=== PATIENT | female | born 1960 | race Hispanic/Latino ===

== ENCOUNTER 2017-08-17 15:58 | Emergency (ER) | payer SELFPAY ==
[2017-08-17] MEDS ORDERED: Ketorolac Tromethamine 30 MG/ML VIAL ONE (18:57)
== END 2017-08-17 19:20 | disposition home or self-care (01) ==
LOC: ERS 15:58
DX: J11.1 Influenza due to unidentified influenza virus with other respiratory manifestations (principal); E11.9 Type 2 diabetes mellitus without complications; F32.9 Major depressive disorder, single episode, unspecified; F41.9 Anxiety disorder, unspecified; Z79.4 Long term (current) use of insulin; Z79.899 Other long term (current) drug therapy
CPT/HCPCS: 96372; J1885

== ENCOUNTER 2018-03-23 12:00 | Emergency (ER) | payer OTHER, SELFPAY ==
[2018-03-23 12:42] LABS: #Basophils 0.1 thou/uL (0.0-0.2); #Lymphocytes 1.1 thou/uL (1.20-3.40); #Monocytes 0.9 thou/uL (0.11-0.59); #Neutrophils 5.5 thou/uL (1.40-6.50); %Basophils 0.7 % (0.0-1.0); %Eosinophils 0.3 % (0.0-10.0); %Lymphocytes 14.8 % (21.0-51.0); %Neutrophils 72.3 % (42.0-75.0); Hemoglobin 15.3 g/dL (12.0-16.0); Mean Corpuscular Hemoglobin 31.8 pg (27.0-31.0); Mean Corpuscular Volume 93.6 fL (78.0-98.0); Mean Platelet Volume 8.1 fL (7.4-10.4); Platelet Count 160 thou/uL (130-400); RBC Distribution Width 12.7 % (11.5-14.5); Red Blood Cell (RBC) Count 4.81 mill/uL (4.20-5.40); White Blood Cell (WBC) Count 7.6 thou/uL (4.8-10.8)
[2018-03-23] MEDS ORDERED: Ondansetron HCl/PF 4 MG/2 ML Vial ONE (12:59)
[2018-03-23 13:11] LABS: ALT (SGPT) 65 U/L (8-55); AST (SGOT) 89 U/L (5-34); Albumin 3.7 g/dL (3.5-5.0); Alkaline Phosphatase 108 U/L (40-150); Anion Gap 18 mmol/L (10-20); BUN (Urea Nitrogen) 13 mg/dL (9.8-20.1); Bilirubin, Total 0.4 mg/dL (0.2-1.2); Calc. Creatinine Clearance 0 mL/min (70-130); Calcium 8.3 mg/dL (7.8-10.44); Carbon Dioxide 16 mmol/L (22-29); Chloride 101 mmol/L (98-107); Estimated GFR-MDRD Greater than 90; Globulin 3.1 g/dL (2.4-3.5); Glucose 125 mg/dL (70-105); Potassium 3.6 mmol/L (3.5-5.1); Protein, Total 6.8 g/dL (6.0-8.3); Sodium 131 mmol/L (136-145)
--- NOTE | 2018-03-23 13:30 | RAD ---
CHEST 1 VIEW: Date: 03/23/18 HISTORY: Cough. COMPARISON: 09/30/12. FINDINGS: Normal cardiac silhouette. Pulmonary vessels and hilum are normal. Costophrenic angles are clear. Chr onic changes lung parenchyma, without consolidation or mass. No pneumothorax or osseous abnormalities . IMPRESSION: No acute cardiopulmonary process. POS: ERVIN
[2018-03-23 15:27] LABS: Bilirubin Negative (Negative); Blood, Urine Negative (Negative); Clarity CLEAR (Clear); Glucose, Urine (Dipstick) 500 mg/dL (Negative); Leukocyte Negative (Negative); Nitrite Negative (Negative); Protein, Urine (Dipstick) Negative (Neg-Trace); Specific Gravity, Urine 1.025 (1.002-1.036); Urobilinogen 0.2 mg/dL (0.2-1.0)
== END 2018-03-23 15:50 | disposition home or self-care (01) ==
LOC: ERS 12:00
DX: R11.2 Nausea with vomiting, unspecified (principal); E11.9 Type 2 diabetes mellitus without complications; Z79.4 Long term (current) use of insulin; F41.9 Anxiety disorder, unspecified; F32.9 Major depressive disorder, single episode, unspecified; Z79.899 Other long term (current) drug therapy
CPT/HCPCS: 36415; 36416; 71045; 80053; 81003; 82010; 83690; 85025; 93005; 96361; 96374; J2405

== ENCOUNTER 2018-03-25 14:41 | Outpatient (CLI) | payer OTHER | END 2018-03-25 14:42 | disposition home or self-care (01) | LOC: BICRAD 14:41 | PROVIDERS: ATTEND Family Medicine | DX: R05 Cough (principal) | CPT/HCPCS: 71046 ==

== ENCOUNTER 2018-04-24 14:48 | Emergency (ER) | payer MEDICARE, OTHER ==
[2018-04-24 15:29] LABS: #Basophils 0.1 thou/uL (0.0-0.2); #Eosinphils 0.2 thou/uL (0.0-0.7); #Lymphocytes 1.7 thou/uL (1.20-3.40); #Monocytes 0.5 thou/uL (0.11-0.59); #Neutrophils 3.7 thou/uL (1.40-6.50); %Basophils 1.1 % (0.0-1.0); %Eosinophils 3.2 % (0.0-10.0); %Lymphocytes 27.7 % (21.0-51.0); %Monocytes 8.5 % (0.0-10.0); %Neutrophils 59.5 % (42.0-75.0); Hemoglobin 13.5 g/dL (12.0-16.0); Mean Corpuscular HGB CONC 34.9 g/dL (32.0-36.0); Mean Corpuscular Hemoglobin 32.8 pg (27.0-31.0); Mean Corpuscular Volume 93.9 fL (78.0-98.0); Mean Platelet Volume 8.3 fL (7.4-10.4); Platelet Count 154 thou/uL (130-400); RBC Distribution Width 12.6 % (11.5-14.5); Red Blood Cell (RBC) Count 4.13 mill/uL (4.20-5.40); White Blood Cell (WBC) Count 6.2 thou/uL (4.8-10.8)
[2018-04-24 15:34] LABS: ALT (SGPT) 61 U/L (8-55); AST (SGOT) 78 U/L (5-34); Albumin 3.6 g/dL (3.5-5.0); Alkaline Phosphatase 104 U/L (40-150); Anion Gap 12 mmol/L (10-20); BUN (Urea Nitrogen) 8 mg/dL (9.8-20.1); Bilirubin, Total 0.2 mg/dL (0.2-1.2); Calc. Creatinine Clearance 0 mL/min (70-130); Calcium 8.5 mg/dL (7.8-10.44); Carbon Dioxide 26 mmol/L (22-29); Chloride 100 mmol/L (98-107); Estimated GFR-MDRD 80; Globulin 2.8 g/dL (2.4-3.5); Glucose 356 mg/dL (70-105); Potassium 3.6 mmol/L (3.5-5.1); Protein, Total 6.4 g/dL (6.0-8.3); Sodium 134 mmol/L (136-145)
[2018-04-24] MEDS ORDERED: Ondansetron HCl/PF 4 MG/2 ML Vial ONE (15:36)
[2018-04-24 15:39] LABS: CKMB 0.6 ng/mL (0-6.6); Troponin I Less than 0.010 ng/mL (< 0.028)
[2018-04-24 16:07] LABS: Bilirubin Negative (Negative); Blood, Urine Negative (Negative); Clarity CLEAR (Clear); Glucose, Urine (Dipstick) >=1000 mg/dL (Negative); Leukocyte Negative (Negative); Nitrite Negative (Negative); Protein, Urine (Dipstick) Negative (Neg-Trace); Specific Gravity, Urine 1.034 (1.002-1.036); Urobilinogen 0.2 mg/dL (0.2-1.0); pH, Urine 6.5 (5.0-9.0)
== END 2018-04-24 17:36 | disposition home or self-care (01) ==
LOC: ERS 14:48
DX: E11.65 Type 2 diabetes mellitus with hyperglycemia (principal); F25.9 Schizoaffective disorder, unspecified; F41.9 Anxiety disorder, unspecified; F32.9 Major depressive disorder, single episode, unspecified; Z79.4 Long term (current) use of insulin; Z79.899 Other long term (current) drug therapy
CPT/HCPCS: 80053; 81003; 82553; 84443; 84484; 85025; 93005; 96361; 96374; J2405

== ENCOUNTER 2018-07-06 09:23 | Emergency (ER) | payer MEDICARE ==
[2018-07-06 10:06] LABS: #Eosinphils 0.2 thou/uL (0.0-0.7); #Lymphocytes 1.4 thou/uL (1.20-3.40); #Monocytes 0.7 thou/uL (0.11-0.59); #Neutrophils 6.9 thou/uL (1.40-6.50); %Basophils 0.1 % (0.0-1.0); %Eosinophils 1.7 % (0.0-10.0); %Monocytes 7.1 % (0.0-10.0); Hemoglobin 13.9 g/dL (12.0-16.0); Mean Corpuscular HGB CONC 32.3 g/dL (32.0-36.0); Mean Corpuscular Hemoglobin 31.3 pg (27.0-31.0); Mean Corpuscular Volume 96.8 fL (78.0-98.0); Platelet Count 194 thou/uL (130-400); RBC Distribution Width 12.7 % (11.5-14.5); Red Blood Cell (RBC) Count 4.45 mill/uL (4.20-5.40); White Blood Cell (WBC) Count 9.1 thou/uL (4.8-10.8)
[2018-07-06] MEDS ORDERED: Ondansetron PF 4 MG/2 ML Vial ONE (10:16)
[2018-07-06 10:37] LABS: ALT (SGPT) 51 U/L (8-55); AST (SGOT) 52 U/L (5-34); Albumin 3.7 g/dL (3.5-5.0); Alkaline Phosphatase 98 U/L (40-150); Anion Gap 11 mmol/L (10-20); BUN (Urea Nitrogen) 9 mg/dL (9.8-20.1); Bilirubin, Total 0.5 mg/dL (0.2-1.2); Calc. Creatinine Clearance 0 mL/min (70-130); Carbon Dioxide 30 mmol/L (22-29); Chloride 104 mmol/L (98-107); Estimated GFR-MDRD Greater than 90; Globulin 2.8 g/dL (2.4-3.5); Glucose 135 mg/dL (70-105); Lipase 9 U/L (8-78); Potassium 3.5 mmol/L (3.5-5.1); Protein, Total 6.5 g/dL (6.0-8.3); Sodium 141 mmol/L (136-145)
[2018-07-06 10:38] LABS: Bilirubin Negative (Negative); Blood, Urine Negative (Negative); Clarity CLEAR (Clear); Glucose, Urine (Dipstick) >=1000 mg/dL (Negative); Leukocyte Negative (Negative); Nitrite Negative (Negative); Protein, Urine (Dipstick) Negative (Neg-Trace); Specific Gravity, Urine 1.033 (1.002-1.036); Urobilinogen 0.2 mg/dL (0.2-1.0)
== END 2018-07-06 11:04 | disposition home or self-care (01) ==
LOC: ERS 09:23
DX: R11.2 Nausea with vomiting, unspecified (principal); E11.9 Type 2 diabetes mellitus without complications; F25.9 Schizoaffective disorder, unspecified; F32.9 Major depressive disorder, single episode, unspecified; F41.9 Anxiety disorder, unspecified; Z79.4 Long term (current) use of insulin; Z79.899 Other long term (current) drug therapy
CPT/HCPCS: 36415; 36416; 80053; 81003; 83690; 85025; 96361; 96374; J2405

== ENCOUNTER 2019-09-19 14:04 | Outpatient (CLI) | payer MEDICARE ==
--- NOTE | 2019-09-19 14:57 | MMO ---
Bilateral MAMMO Bilat Screen [facility]. CLINICAL HISTORY: Patient is 59 years old and is seen for screening. The patient has no family history of breast cancer. The patient has no personal history of cancer. The patient has a history of left Excisional Biopsy in 1999 - benign. VIEWS: The views performed were: bilateral craniocaudal with tomosynthesis and bilateral mediolateral oblique with tomosynthesis. FILMS COMPARED: The present examination has been compared to prior imaging studies performed at on 01/31/2013 and 06/10/2016. This study has been interpreted with the assistance of computer-aided detection. MAMMOGRAM FINDINGS: There are scattered fibroglandular densities. There are no suspicious masses, suspicious calcifications, or new areas of architectural distortion. IMPRESSION: THERE IS NO MAMMOGRAPHIC EVIDENCE OF MALIGNANCY. A ROUTINE FOLLOW-UP MAMMOGRAM IN 1 YEAR IS RECOMMENDED. THE RESULTS OF THIS EXAM WERE SENT TO THE PATIENT. ACR BI-RADS Category 1 - Negative MAMMOGRAPHY NOTE: 1. A negative mammogram report should not delay a biopsy if a dominant of clinically suspicious mass is present. 2. Approximately 10% to 15% of breast cancers are not detected by mammography. 3. Adenosis and dense breasts may obscure an underlying neoplasm. Reported by: SIDRA MITCHELL MD Electonically Signed: [id number]
== END 2019-09-19 14:05 | disposition home or self-care (01) ==
LOC: BICMAMMO 14:04
PROVIDERS: ATTEND Family Medicine
DX: Z12.31 Encounter for screening mammogram for malignant neoplasm of breast (principal); Z91.89 Other specified personal risk factors, not elsewhere classified
CPT/HCPCS: 77063; 77067

== ENCOUNTER 2020-01-29 14:26 | Observation (INO) | payer MEDICARE, OTHER ==
[2020-01-29 15:51] LABS: #Eosinphils 0.2 thou/uL (0.0-0.7); #Lymphocytes 1.3 thou/uL (1.20-3.40); #Monocytes 0.5 thou/uL (0.11-0.59); #Neutrophils 3.8 thou/uL (1.40-6.50); %Basophils 0.7 % (0.0-1.0); %Lymphocytes 21.8 % (21.0-51.0); %Monocytes 8.4 % (0.0-10.0); %Neutrophils 66.1 % (42.0-75.0); Hemoglobin 12.8 g/dL (12.0-16.0); Mean Corpuscular HGB CONC 33.7 g/dL (32.0-36.0); Mean Corpuscular Hemoglobin 31.6 pg (27.0-31.0); Mean Corpuscular Volume 93.7 fL (78.0-98.0); RBC Distribution Width 12.7 % (11.5-14.5); Red Blood Cell (RBC) Count 4.06 mill/uL (4.20-5.40); White Blood Cell (WBC) Count 5.8 thou/uL (4.8-10.8)
[2020-01-29 16:08] LABS: MDiff Complete? YES; Mean Platelet Volume 8.6 fL (7.4-10.4); Platelet Count 102 thou/uL (130-400); Platelet Morphology Comment Appears Decreased; Polychromasia SLIGHT = 2-3 cells (100X) (0-2/hpf)
[2020-01-29 16:12] LABS: ALT (SGPT) 29 U/L (8-55); AST (SGOT) 32 U/L (5-34); Albumin 3.7 g/dL (3.5-5.0); Alkaline Phosphatase 138 U/L (40-110); Anion Gap 14 mmol/L (10-20); BUN (Urea Nitrogen) 13 mg/dL (9.8-20.1); Bilirubin, Total 0.3 mg/dL (0.2-1.2); Calc. Creatinine Clearance 0 mL/min (70-130); Calcium 8.8 mg/dL (7.8-10.44); Carbon Dioxide 24 mmol/L (22-29); Chloride 102 mmol/L (98-107); Estimated GFR-MDRD 82; Globulin 3.2 g/dL (2.4-3.5); Glucose 231 mg/dL (70-105); Potassium 3.9 mmol/L (3.5-5.1); Protein, Total 6.9 g/dL (6.0-8.3); Sodium 136 mmol/L (136-145)
[2020-01-29] MEDS ORDERED: Nitroglycerin 0.4 MG TAB 1 EACH ONE (16:16)
[2020-01-29] MEDS ORDERED: Acetaminophen 325 MG TAB PO PRN (16:52)
[2020-01-29] MEDS ORDERED: Ondansetron PF 4 MG/2 ML Vial IVP PRN (16:52)
[2020-01-29] MEDS ORDERED: Senokot S 8.6-50 MG TAB PO PRN (16:52)
[2020-01-29] MEDS ORDERED: Bisacodyl 10 MG SUPP PR PRN (16:52)
[2020-01-29] MEDS ORDERED: Guaifenesin DM 100-10/5 ML UDCUP PO PRN (16:52)
[2020-01-29] MEDS ORDERED: Nitroglycerin 0.4 MG TAB (25 Tab Bottle) PO PRN (16:52)
[2020-01-29] MEDS ORDERED: HumaLOG 300 UNITS/3 ML VIAL SC PRN ×2 (16:52)
[2020-01-29] MEDS ORDERED: Dextrose 50% Abboject 50 ML SYRINGE SLOW IVP PRN (16:52)
[2020-01-29] MEDS ORDERED: Dextrose 5% in Water 1,000 ML IV PRN (16:52)
--- NOTE | 2020-01-29 17:39 | RAD ---
CHEST 1 VIEW: HISTORY: Shortness of breath. FINDINGS: Stable increased markings bilaterally. Heart size is within normal limits. No confluent pneumonia, overt edema, or pleural effusion. IMPRESSION: Minimal stable linear chronic changes. No acute intrathoracic disease. POS: RRE
[2020-01-29] MEDS ORDERED: Acetaminophen 325 MG TAB ONE (18:55)
--- NOTE | 2020-01-29 18:56 | HP ---
REASON FOR ADMISSION: Shortness of breath, generalized weakness. HISTORY OF PRESENTING ILLNESS: The patient gives history of developing severe shortness of breath on minimal exertion from last 2 to 3 days now. Yesterday, it got worse in handle turner, the patient got scared, hence came to emergency room. The patient is unclear if she got exposed to her nephew, who is here in the hospital for coronavirus testing. No complaints of chest pain, palpitations or PND. She has mild orthopnea and tries to prop herself up on pillows at home. She has had chronic right upper quadrant pain, for which Dr. Sheehan is planning on doing an upper endoscopy and colonoscopy in the outpatient setting in the near future. She has had a prior stress test done in 2013, which was negative. No fever at home. No complaints of urinary frequency or urgency. PAST MEDICAL AND SURGICAL HISTORY: History of diabetes mellitus type 2, obesity, fatty liver, x2, left breast lump removed, and PTSD. CURRENT MEDICATIONS: 1. Metformin 1000 mg twice daily. 2. Quinapril 5 mg daily. 3. Tresiba 110 units daily. 4. Protonix 40 mg daily. 5. Risperidone 0.5 mg daily. 6. Jardiance 25 mg daily. ALLERGIES: NO KNOWN DRUG ALLERGIES. PERSONAL HISTORY: Does not abuse alcohol or drugs. No history of smoking. FAMILY HISTORY: The patient lives alone. She ambulates by herself. Does not abuse alcohol or drugs. No history of smoking. FAMILY HISTORY: Mother in her 70s, she had history of dementia and diabetes. Father in his 60s, he apparently committed suicide. He had unknown medical issues which she cannot recall. CODE STATUS: Full. Power of assistant attorney general is her oldest daughter. REVIEW OF SYSTEMS: CONSTITUTIONAL: Negative for weight loss or gain, ability to conduct usual activities. SKIN: Negative for rash, itching. EYES: Negative for double vision, pain. ENT/MOUTH: Negative for nose bleeding, neck stiffness, pain, tenderness. CARDIOVASCULAR: Negative for palpitations, dyspnea on exertion, orthopnea. RESPIRATORY: Negative for shortness of breath, wheezing, cough, hemoptysis, fever or night sweats. GASTROINTESTINAL: Negative for poor appetite, abdominal pain, heartburn, nausea, vomiting, constipation, or diarrhea. GENITOURINARY: Negative for urgency, frequency, dysuria, nocturia. MUSCULOSKELETAL: Negative for pain, swelling. NEUROLOGIC/PSYCHIATRIC: Negative for anxiety, depression. ALLERGY/IMMUNOLOGIC: Negative for skin rash, bleeding tendency. PHYSICAL EXAMINATION: GENERAL: The patient is a 59-year-old female, who is currently not in any acute distress. VITAL SIGNS: Blood pressure 190/96, pulse 72 per minute, respiratory rate 20 per minute, temperature 98.5 degrees Fahrenheit, and saturating 97% on room air. NECK: Supple. No elevated JVD. HEENT: Eyes; extraocular muscles intact. Pupils reacting to light. Oral cavity, mucous membranes are moist. No exudates or congestion. CARDIOVASCULAR SYSTEM: S1 and S2 heard, regular rhythm. RESPIRATORY SYSTEM: Air entry 1+ bilateral. No rales or rhonchi. ABDOMEN: Soft. Bowel sounds heard. No tenderness, rigidity or guarding. EXTREMITIES: No peripheral edema or calf tenderness. VASCULAR SYSTEM: Peripheral pulses 2+ bilateral. No ischemic ulcerations or gangrene. CENTRAL NERVOUS SYSTEM: No gross focal motor deficits noted. THE patient is alert, awake, oriented well. PSYCHIATRIC SYSTEM: The patient's mood is euthymic. No hallucinations or delusions. LABORATORY DATA: White count of 5.8, H and H of 12 and 38, platelet count of 102, MCV of 93 with 66% neutrophils. Electrolytes stable. BUN 13, creatinine 0.7, and serum glucose 231. AST and ALT within normal limits. Alkaline phosphatase is 138. Albumin 3.7. IMAGING STUDIES: Chest x-ray done shows no acute cardiopulmonary abnormalities. There are questionable minimal stable linear chronic changes. CLINICAL IMPRESSION AND PLAN: The patient will be under observation on the COVID floor to rule out COVID. She has had sudden onset of exertional shortness of breath. The patient has multiple risk factors including diabetes and hypertension and unknown psychiatric condition. COVID-19 swab has been obtained in the ER. We will continue her on full-dose aspirin, small dose of Coreg at 6.25 mg twice daily, quinapril 5 mg, and she will be on Lantus 10 units subcu twice daily for now. We will obtain echo with 2D Doppler once her coronavirus test is negative for quantification of her EF. Her BNP was less than 10. The patient likely might have underlying sleep apnea. She also weighs around 88 kg. We will obtain serial troponins and lipid profile in the morning. The patient does mention that she has had prior right upper quadrant ultrasound, the last one was on 01/18/2020, which showed changes of fatty liver, but no cholelithiasis. In view of this, no further workup for the gallbladder will be obtained. Job ID: [id number]
[2020-01-29 19:14] LABS: Troponin I Less than 0.010 ng/mL (< 0.028)
[2020-01-29 19:38] VITALS: BMI 35.1
[2020-01-29] MEDS ORDERED: risperiDONE 1 MG TAB PO SCH (21:00)
[2020-01-29] MEDS: Carvedilol 6.25 MG TAB PO SCH (21:37)
[2020-01-29] MEDS: Famotidine 20 MG TAB PO SCH (21:38)
[2020-01-29] MEDS: Insulin Glargine 10 UNITS in Pre-Filled Syringe SC SCH (21:39)
[2020-01-29 22:41] LABS: Troponin I Less than 0.010 ng/mL (< 0.028)
[2020-01-30 05:30] LABS: #Eosinphils 0.2 thou/uL (0.0-0.7); #Lymphocytes 1.7 thou/uL (1.20-3.40); #Monocytes 0.6 thou/uL (0.11-0.59); #Neutrophils 3.1 thou/uL (1.40-6.50); %Basophils 0.7 % (0.0-1.0); %Eosinophils 4.2 % (0.0-10.0); %Lymphocytes 29.4 % (21.0-51.0); %Monocytes 10.9 % (0.0-10.0); %Neutrophils 54.8 % (42.0-75.0); Hemoglobin 12.4 g/dL (12.0-16.0); Mean Corpuscular HGB CONC 34.3 g/dL (32.0-36.0); Mean Corpuscular Volume 93.3 fL (78.0-98.0); Mean Platelet Volume 9.1 fL (7.4-10.4); Platelet Count 106 thou/uL (130-400); RBC Distribution Width 12.8 % (11.5-14.5); Red Blood Cell (RBC) Count 3.88 mill/uL (4.20-5.40); White Blood Cell (WBC) Count 5.6 thou/uL (4.8-10.8)
[2020-01-30 05:34] LABS: Hemoglobin A1c 7.4 % (4.0-6.0)
[2020-01-30 05:47] LABS: Anion Gap 10 mmol/L (10-20); BUN (Urea Nitrogen) 9 mg/dL (9.8-20.1); Calc. Creatinine Clearance 145 mL/min (70-130); Calcium 8.8 mg/dL (7.8-10.44); Carbon Dioxide 27 mmol/L (22-29); Chloride 105 mmol/L (98-107); Cholesterol 121 mg/dl (< 200 Desired); Estimated GFR-MDRD Greater than 90; Glucose 127 mg/dL (70-105); HDL Cholesterol 41 mg/dL (>60 Neg Risk); LDL Cholesterol, Calculated 63 mg/dL; Potassium 3.5 mmol/L (3.5-5.1); Sodium 138 mmol/L (136-145); Triglycerides 85 mg/dL (Less than 150)
[2020-01-30] MEDS ORDERED: Enoxaparin Sodium 40 MG/0.4 ML SYRINGE SC SCH (09:00)
[2020-01-30] MEDS ORDERED: Lisinopril 5 MG TAB PO SCH (09:00)
[2020-01-30] MEDS ORDERED: Aspirin 325 mg Enteric Coated Tablet PO SCH (09:00)
[2020-01-30] MEDS ORDERED: Pantoprazole 40 MG GRANULES PACKET PO SCH (09:00)
[2020-01-30] MEDS: Insulin Glargine 10 UNITS in Pre-Filled Syringe SC SCH (09:20)
[2020-01-30] MEDS: Famotidine 20 MG TAB PO SCH (09:21)
[2020-01-30] MEDS: Carvedilol 6.25 MG TAB PO SCH (10:39)
[2020-01-30 12:03] VITALS: BP 129/68; TEMP 98.7
[2020-01-30 14:01] LABS: SARS-CoV-2 MS2 Positive; SARS-CoV-2 N Gene Negative; SARS-CoV-2 S Gene Negative; SARS-CoV-2 orf1ab Negative
[2020-01-30] MEDS ORDERED: Atorvastatin Calcium 20 MG TAB PO SCH (21:00)
--- NOTE | 2020-02-01 13:45 | DIS ---
DATE OF ADMISSION: 01/29/2020 DATE OF DISCHARGE: 01/30/2020 CHIEF COMPLAINT: Ms. Lai is a 59-year-old female with a medical history of type 2 diabetes, fatty liver disease, and obesity, who presented with acute shortness of breath and generalized weakness with minimal exertion. COVID was ruled out. Cardiac workup was initiated and was negative; however, the patient left AMA prior to completion of cardiac workup. In addition to that, the patient presented with hypertensive urgency. She was restarted on her antihypertensive regimen and blood pressure improved. She was discharged home hemodynamically stable with no complaints. PHYSICAL EXAMINATION: VITAL SIGNS: Blood pressure 129/68, temperature 98.7, pulse 83, respiratory rate 16, oxygen saturations 97% on room air. GENERAL: Lying comfortably in bed, in no apparent distress. Morbidly obese. HEENT: No JVD. PERRL. CARDIOVASCULAR: Regular rate, rhythm. No gallops, no murmurs, no rubs. LUNGS: Clear to auscultation bilaterally. No wheezing, rales, or rhonchi. ABDOMEN: Soft, nontender, nondistended. Normal bowel sounds. EXTREMITIES: No edema. PSYCHIATRIC: Mood is euthymic. MEDICATION LIST: 1. New medications: No new medications. 2. Modified medications: No modified medications. 3. Continued medications: Aspirin, Jardiance, Tresiba, Invega, pantoprazole, quinapril, risperidone. Job ID: [id number]
--- NOTE | 2020-02-09 15:50 | EKG ---
Test Reason : Blood Pressure : / mmHG Vent. Rate : 098 BPM Atrial Rate : 098 BPM P-R Int : 154 ms QRS Dur : 084 ms QT Int : 370 ms P-R-T Axes : 031 038 045 degrees QTc Int : 472 ms Normal sinus rhythm Normal ECG Confirmed by ANJALI SILVERIO ([id number]), international editorial producer MT CALL ([id number]) on 02/09/2020 3:49:54 PM Referred By: Confirmed By:ANJALI Chandra
== END 2020-01-30 12:35 | disposition left against medical advice (07) ==
LOC: ERS 14:26 → 2SW 16:53
PROVIDERS: ADMIT Internal Medicine; ATTEND Internal Medicine
DX: R06.02 Shortness of breath (principal); R53.1 Weakness; R06.01 Orthopnea; G89.29 Other chronic pain; R10.11 Right upper quadrant pain; E11.9 Type 2 diabetes mellitus without complications; I16.0 Hypertensive urgency; I10 Essential (primary) hypertension; F43.10 Post-traumatic stress disorder, unspecified; K76.0 Fatty (change of) liver, not elsewhere classified; F25.9 Schizoaffective disorder, unspecified; F32.9 Major depressive disorder, single episode, unspecified; E66.9 Obesity, unspecified; Z68.35 Body mass index [BMI] 35.0-35.9, adult; Z20.828 Contact with and (suspected) exposure to other viral communicable diseases; Z53.29 Procedure and treatment not carried out because of patient's decision for other reasons; Z79.4 Long term (current) use of insulin; Z79.82 Long term (current) use of aspirin; Z79.899 Other long term (current) drug therapy
CPT/HCPCS: 71045; 80048; 80053; 80061; 82728; 82962 ×2; 83036; 83880; 84484 ×2; 85025 ×2; 93005; 96372; 96374; 99285; G0378 ×3; U0003; 36415; 36416; 87635; J1650; J1815; J2405

== ENCOUNTER 2020-02-28 16:40 | Emergency (ER) | payer MEDICARE | END 2020-02-28 16:58 | disposition left against medical advice (07) | LOC: ERS 16:40 | DX: Z53.21 Procedure and treatment not carried out due to patient leaving prior to being seen by health care provider (principal) ==

== ENCOUNTER 2020-02-29 11:15 | Emergency (ER) | payer MEDICARE ==
[2020-02-29] MEDS ORDERED: Lorazepam 1 MG TAB ONE (12:45)
[2020-02-29 15:00] LABS: #Eosinphils 0.1 thou/uL (0.0-0.7); #Lymphocytes 1.1 thou/uL (1.20-3.40); #Monocytes 0.4 thou/uL (0.11-0.59); #Neutrophils 3.9 thou/uL (1.40-6.50); %Basophils 0.5 % (0.0-1.0); %Eosinophils 1.5 % (0.0-10.0); %Monocytes 7.3 % (0.0-10.0); %Neutrophils 70.6 % (42.0-75.0); Hemoglobin 13.6 g/dL (12.0-16.0); Mean Corpuscular HGB CONC 33.3 g/dL (32.0-36.0); Mean Corpuscular Hemoglobin 31.7 pg (27.0-31.0); Mean Corpuscular Volume 94.9 fL (78.0-98.0); Mean Platelet Volume 8.2 fL (7.4-10.4); Platelet Count 109 thou/uL (130-400); RBC Distribution Width 12.9 % (11.5-14.5); Red Blood Cell (RBC) Count 4.29 mill/uL (4.20-5.40); White Blood Cell (WBC) Count 5.5 thou/uL (4.8-10.8)
[2020-02-29 15:08] LABS: Bilirubin Negative (Negative); Blood, Urine Negative (Negative); Clarity Clear (Clear); Glucose, Urine (Dipstick) 500 mg/dL (Negative); Ketone, Urine 10 mg/dL (Negative); Leukocyte Negative Leu/uL (Negative); Nitrite Negative (Negative); Protein, Urine (Dipstick) Negative (Neg-Trace); Specific Gravity, Urine 1.004 (1.002-1.036); Urobilinogen Normal mg/dL (Less than 2); pH, Urine 6.5 (5.0-9.0)
[2020-02-29 17:00] LABS: ALT (SGPT) 24 U/L (8-55); AST (SGOT) 45 U/L (5-34); Albumin 3.8 g/dL (3.5-5.0); Alkaline Phosphatase 94 U/L (40-110); Anion Gap 15 mmol/L (10-20); BUN (Urea Nitrogen) 9 mg/dL (9.8-20.1); Bilirubin, Total 0.4 mg/dL (0.2-1.2); Calc. Creatinine Clearance 0 mL/min (70-130); Calcium 8.4 mg/dL (7.8-10.44); Carbon Dioxide 22 mmol/L (22-29); Chloride 104 mmol/L (98-107); Estimated GFR-MDRD Greater than 90; Globulin 3.6 g/dL (2.4-3.5); Glucose 72 mg/dL (70-105); Potassium 4.4 mmol/L (3.5-5.1); Protein, Total 7.4 g/dL (6.0-8.3); Sodium 137 mmol/L (136-145)
== END 2020-02-29 16:35 | disposition home or self-care (01) ==
LOC: ERS 11:15
DX: F43.20 Adjustment disorder, unspecified (principal); R06.02 Shortness of breath; R07.9 Chest pain, unspecified; E11.9 Type 2 diabetes mellitus without complications; K21.9 Gastro-esophageal reflux disease without esophagitis; F41.9 Anxiety disorder, unspecified; F32.9 Major depressive disorder, single episode, unspecified; F25.9 Schizoaffective disorder, unspecified; Z79.4 Long term (current) use of insulin; Z79.899 Other long term (current) drug therapy
CPT/HCPCS: 36415; 80053; 81003; 84443; 84484; 85025; 93005

== ENCOUNTER 2020-08-08 11:56 | Outpatient (CLI) | payer MEDICARE ==
--- NOTE | 2020-08-08 13:02 | RAD ---
RIGHT HUMERUS 2 VIEWS: Date: 08/08/2020 HISTORY: Pain in right arm. FINDINGS/IMPRESSION: The right humerus is intact. POS: AH
== END 2020-08-08 11:57 | disposition home or self-care (01) ==
LOC: BICRAD 11:56
PROVIDERS: ATTEND Family Medicine
DX: M79.601 Pain in right arm (principal)

== ENCOUNTER 2020-09-23 15:43 | Outpatient (CLI) | payer MEDICARE ==
--- NOTE | 2020-09-23 16:20 | MMO ---
Bilateral MAMMO Bilat Screen [facility]. CLINICAL HISTORY: Patient is 60 years old and is seen for screening. The patient has no family history of breast cancer. The patient has no personal history of cancer. The patient has a history of left Excisional Biopsy in 1999 - benign. VIEWS: The views performed were: bilateral craniocaudal with tomosynthesis and bilateral mediolateral oblique with tomosynthesis. FILMS COMPARED: The present examination has been compared to prior imaging studies performed at [facility] on 06/10/2016 and 09/19/2019. This study has been interpreted with the assistance of computer-aided detection. MAMMOGRAM FINDINGS: There are scattered fibroglandular densities. Benign calcifications are noted bilaterally. There are no suspicious masses, suspicious calcifications, or new areas of architectural distortion. IMPRESSION: THERE IS NO MAMMOGRAPHIC EVIDENCE OF MALIGNANCY. A ROUTINE FOLLOW-UP MAMMOGRAM IN 1 YEAR IS RECOMMENDED. THE RESULTS OF THIS EXAM WERE SENT TO THE PATIENT. ACR BI-RADS Category 2 - Benign finding MAMMOGRAPHY NOTE: 1. A negative mammogram report should not delay a biopsy if a dominant of clinically suspicious mass is present. 2. Approximately 10% to 15% of breast cancers are not detected by mammography. 3. Adenosis and dense breasts may obscure an underlying neoplasm. Reported by: LUCIANO ROJAS MD Electonically Signed: [id number]
== END 2020-09-23 15:44 | disposition home or self-care (01) ==
LOC: BICMAMMO 15:43
PROVIDERS: ATTEND Family Medicine
DX: Z12.31 Encounter for screening mammogram for malignant neoplasm of breast (principal); Z91.89 Other specified personal risk factors, not elsewhere classified
CPT/HCPCS: 77063; 77067

== ENCOUNTER 2022-09-08 13:51 | Outpatient (CLI) | payer MEDICARE | END 2022-09-08 13:52 | disposition home or self-care (01) | LOC: BICMAMMO 13:51 | PROVIDERS: ATTEND Family Medicine | DX: Z12.31 Encounter for screening mammogram for malignant neoplasm of breast (principal); R92.1 Mammographic calcification found on diagnostic imaging of breast; Z86.018 Personal history of other benign neoplasm; Z91.89 Other specified personal risk factors, not elsewhere classified | CPT/HCPCS: 77063; 77067 ==

== ENCOUNTER 2022-10-13 12:48 | Emergency (ER) | payer MEDICARE ==
[2022-10-13 15:05] LABS: Bilirubin Negative (Negative); Blood, Urine Negative (Negative); Clarity Clear (Clear); Glucose, Urine (Dipstick) Greater than 1000 mg/dL (Negative); Ketone, Urine Trace mg/dL (Negative); Leukocyte Negative Leu/uL (Negative); Nitrite Negative (Negative); Protein, Urine (Dipstick) Negative (Neg-Trace); Specific Gravity, Urine 1.022 (1.002-1.036); Urobilinogen Normal mg/dL (Less than 2); pH, Urine 6.5 (5.0-9.0)
== END 2022-10-13 17:28 | disposition home or self-care (01) ==
LOC: ERS 12:48
DX: K64.9 Unspecified hemorrhoids (principal); B37.31 Acute candidiasis of vulva and vagina; E11.9 Type 2 diabetes mellitus without complications; K21.9 Gastro-esophageal reflux disease without esophagitis; Z79.4 Long term (current) use of insulin; Z79.84 Long term (current) use of oral hypoglycemic drugs
CPT/HCPCS: 81003; 87086; 87480; 87510; 87660; 99283

== ENCOUNTER 2023-10-08 15:08 | Outpatient (CLI) | payer MEDICARE | END 2023-10-08 15:09 | disposition home or self-care (01) | LOC: BICULT 15:08 | PROVIDERS: ATTEND Family Medicine | DX: R32 Unspecified urinary incontinence (principal) | CPT/HCPCS: 76770 ==